=== PATIENT | female | born 1965 | race Caucasian/White ===

== ENCOUNTER 2018-02-23 22:45 | Observation (INO) | payer MEDICAID, OTHER ==
--- NOTE | 2018-02-23 22:52 | EDM.PDOC ---
ED HPI GENERAL MEDICAL PROBLEM - General Chief Complaint: Respiratory Problem Stated Complaint: shortness of breath Time Seen by Provider: 02/23/18 22:48 Source of Information: Reports: Patient, Family, Old Records, RN, RN Notes Reviewed History Limitations: Reports: No Limitations - History of Present Illness INITIAL COMMENTS - FREE TEXT/NARRATIVE: Mariluz Quinteros is a 52 year oldfemale who presents to the ED complains of fatigue and SOB that started gradually starting last /Wednesday. She does notfeel restored after sleeping and gets an average of 3-4 hours of sleep per night. She doessnore and daytime sleepiness doesoccur. She does notfeel sad, depressed, or lack hope for the future. She does not feel anxious. She doesfeel muscle fatigue and weakness. Physical exercise and activity exacerbates the fatigue. Patient has a history of Vit B12 deficiency s/p gastric bypass. She also has DHRUV. She states she is supposed to have a Vit B12 injection one a month. Her last injection was 12/20/2017. Patient was given a VitB12 injection on 2017 in clinic. She states she feels very winded, hard to catch her breath, and can not take in a deep breath. No recent infections. Patient states she feels these symptoms when her iron or Hgb is low. She has been taking her vitamins daily. She states she takes many rest periods throughout the day. She feels SOB most of the time since last week. No cough. No dizziness. No chest pain. Patient is also concerned about wound drainage. Patient underwent Achilles tendon repair on 01/24/2018. She states things have been going well since surgery. She noticed yesterday an open area along the incision line. She denies any odor to the wound. She states the drainage has bene purulent with a a small/ scant amount. She complains of increasing pain to the back on her right lower leg, just above the heal. No focal neurological deficits. Patient was seen by me in clinic two days ago and had multiple lab work completed. Her hematology and chemistries were normal. Would culture of right lower achilles showed Staph. Patient is currently taking SQ Lovenox injections. She states she has two injections left. Onset: Gradual Onset Date: 02/17/18 - Related Data Allergies Allergy/AdvReac Type Severity Reaction Status Date / Time No Known Allergies Allergy Verified 02/23/18 22:46 Home Meds: Home Meds Acetaminophen [Non-Aspirin Pain Relief] 1 - 2 tab PO Q4HR PRN 02/05/14 [History] B-Complex Vitamin 1 tab PO DAILY 02/05/14 [History] Bariatric Advantage Iron 60 mg pe CHEW DAILY 02/05/14 [History] Calcium Carbonate/Vitamin D3 [Calcium 500 + Vit D 400] 1 each PO DAILY 02/05/14 [History] Cholecalciferol (Vitamin D3) [Vitamin D] 5,000 unit PO TID 02/05/14 [History] Escitalopram [Lexapro] 20 mg PO DAILY 02/05/14 [History] Folic Acid 1 mg PO DAILY 02/05/14 [History] Vitamin A 7,500 unit PO DAILY 02/05/14 [History] Cyclobenzaprine HCl 1 tab PO ASDIRECTED PRN 12/18/16 [History] Past Medical History Other Musculoskeletal History: calf strain Psychiatric History: Reports: Depression - Past Surgical History GI Surgical History: Reports: Bariatric Procedure Social & Family History - Tobacco Use Smoking Status *Q: Never Smoker ED ROS GENERAL - Review of Systems Review Of Systems: See Below Constitutional: Reports: Weakness, Fatigue. Denies: Fever, Chills HEENT: Reports: No Symptoms Respiratory: Reports: Shortness of Breath (feels very congested). Denies: Cough , Sputum Cardiovascular: Denies: Chest Pain, Edema, Palpitations GI/Abdominal: Denies: Abdominal Pain, Nausea, Vomiting Skin: Reports: Wound (right achilles incision) Neurological: Reports: Dizziness. Denies: Headache, Numbness, Paresthesia, Tingling ED EXAM, GENERAL - Physical Exam Exam: See Below Exam Limited By: No Limitations General Appearance: Alert, No Apparent Distress Respiratory/Chest: No Respiratory Distress, Lungs Clear, Decreased Breath Sounds , Other (Patient is speaking in full sentences; does not appear SOB; patient laughing during exam) Cardiovascular: Normal Peripheral Pulses, Regular Rate, Rhythm Peripheral Pulses: 2+: Radial (L), Radial (R) GI/Abdominal: Soft, Non-Tender, Abnormal Bowel Sounds (Hypoactive) Neurological: Alert, Oriented Skin Exam: Warm, Dry, Normal Color, Wound/Incision (right lower Achilles; top of wound open, no drainage; slow to heal; steri-stripe intact over rest of incision; moderate erythema and swelling of incision; very tender to touch; incision measures 6.5cm) EKG INTERPRETATION EKG Date: 02/23/18 Time: 23:35 Rhythm: NSR Rate (Beats/Min): 72 [place]: Normal P-Wave: Present QRS: Normal ST-T: Normal QT: Normal HI/PQ Interval: 0.15 Comparison: NA - No Prior EKG EKG Interpretation Comments: 1. Sinus Rhythm 2. Minimal voltage criteria for LVH, consider normal variant 3. Possible anterior NM of indeterminate age 4. Abnormal ECG Course - Vital Signs Last Recorded V/S: Last Vital Signs Temp 37.0 C 02/23/18 22:48 Pulse 86 02/23/18 22:48 Resp 20 02/23/18 22:48 BP 142/77 H 02/23/18 22:48 Pulse Ox 100 02/23/18 22:48 - Orders/Labs/Meds Orders: Active Orders 24 hr Category Date Time Status Admission Status [Patient Status] [ADT] Routine ADT 02/24/18 00:36 Active EKG 12 Lead [EKG Documentation Completion] [RC] STAT Care 02/23/18 22:57 Active Chest PE [Ang Chest] [CT] Stat Exams 02/23/18 23:59 Ordered CULTURE BLOOD [BC] Stat Lab 02/23/18 23:19 Received CULTURE BLOOD [BC] Stat Lab 02/23/18 23:25 Received URINALYSIS W/MICROSCOPIC [UA W/MICROSCOPIC] [URIN] Stat Lab 02/23/18 23:55 Ordered Sodium Chloride 0.9% [Saline Flush] Med 02/23/18 22:54 Active 10 ml FLUSH ASDIRECTED PRN Blood Culture x2 Reflex Set [OM.PC] Stat Oth 02/23/18 22:54 Ordered Peripheral IV Insertion Adult [OM.PC] Routine Oth 02/23/18 22:54 Ordered Medication Orders Sodium Chloride (Saline Flush) 10 ml FLUSH ASDIRECTED PRN PRN Reason: Keep Vein Open Labs: Laboratory Tests 02/23/18 02/23/18 02/23/18 Range/Units 23:19 23:19 23:19 WBC 7.0 (4.0-10.0) x10^3/uL RBC 4.66 (4.00-5.50) x10^6/uL Hgb 13.1 (12.0-16.0) g/dL Hct 39.5 (33.0-47.0) % MCV 84.8 (78.0-93.0) fL MCH 28.1 (26.0-32.0) pg MCHC 33.2 (32.0-36.0) g/dL RDW Coeff of Saad 13.5 (10.0-15.0) % Plt Count 291 (130-400) x10^3/uL Neut % (Auto) 55.5 (50.0-80.0) % Lymph % (Auto) 31.8 (25.0-50.0) % [place] % (Auto) 9.1 (2.0-11.0) % Eos % (Auto) 3.2 (0.0-4.0) % Baso % (Auto) 0.4 (0.2-1.2) % PT (9.8-11.8) SEC INR (2.0-3.5) D-Dimer, Quantitative (<=0.58) mg/LFEU Sodium 141 (136-145) mmol/L Potassium 4.6 (3.5-5.1) mmol/L Chloride 106 (98-107) mmol/L Carbon Dioxide 28 (21-32) mmol/L Anion Gap 11.6 (10-20) mmol/L BUN 15 (7-18) mg/dL Creatinine 0.8 (0.55-1.02) mg/dL Est Cr Clr Drug Dosing TNP Estimated GFR (MDRD) > 60 Glucose 104 (74-106) mg/dL Lactic Acid 2.0 (0.4-2.0) mmol/L Calcium 8.8 (8.5-10.1) mg/dL Corrected Calcium 9.04 (8.5-10.1) mg/dL Total Bilirubin 0.2 (0.2-1.0) mg/dL AST 43 H (15-37) U/L ALT 88 H (14-59) U/L Alkaline Phosphatase 101 (46-116) U/L Creatine Kinase 57 (26-192) U/L Troponin I < 0.017 (<=0.056) ng/mL C-Reactive Protein < 0.2 (<=0.9) mg/dL NT-Pro-B Natriuret Pep (<=125) pg/mL Total Protein 7.5 (6.4-8.2) g/dL Albumin 3.7 (3.4-5.0) g/dL Globulin 3.8 Albumin/Globulin Ratio 0.97 Urine Color (YELLOW) Urine Appearance (CLEAR) Urine pH (5.0-8.0) Ur Specific [place] Urine Protein (NEGATIVE) mg/dL Urine Glucose (UA) (NEGATIVE) mg/dL Urine Ketones (NEGATIVE) mg/dL Urine Occult Blood (NEGATIVE) Urine Nitrite (NEGATIVE) Urine Bilirubin (NEGATIVE) Urine Urobilinogen (0.2) EU/dL Ur Leukocyte Esterase (NEGATIVE) Urine RBC (NOT SEEN) /HPF Urine WBC (NOT SEEN) /HPF Ur Squamous Epith Cells (NEGATIVE) /HPF Urine Bacteria (NEGATIVE) /HPF Urine Mucus (NEGATIVE) /LPF 02/23/18 02/23/18 02/23/18 Range/Units 23:19 23:19 23:55 WBC (4.0-10.0) x10^3/uL RBC (4.00-5.50) x10^6/uL Hgb (12.0-16.0) g/dL Hct (33.0-47.0) % MCV (78.0-93.0) fL MCH (26.0-32.0) pg MCHC (32.0-36.0) g/dL RDW Coeff of Saad (10.0-15.0) % Plt Count (130-400) x10^3/uL Neut % (Auto) (50.0-80.0) % Lymph % (Auto) (25.0-50.0) % [place] % (Auto) (2.0-11.0) % Eos % (Auto) (0.0-4.0) % Baso % (Auto) (0.2-1.2) % PT 9.2 L (9.8-11.8) SEC INR 0.9 L (2.0-3.5) D-Dimer, Quantitative 1.61 H (<=0.58) mg/LFEU Sodium (136-145) mmol/L Potassium (3.5-5.1) mmol/L Chloride (98-107) mmol/L Carbon Dioxide (21-32) mmol/L Anion Gap (10-20) mmol/L BUN (7-18) mg/dL Creatinine (0.55-1.02) mg/dL Est Cr Clr Drug Dosing Estimated GFR (MDRD) Glucose (74-106) mg/dL Lactic Acid (0.4-2.0) mmol/L Calcium (8.5-10.1) mg/dL Corrected Calcium (8.5-10.1) mg/dL Total Bilirubin (0.2-1.0) mg/dL AST (15-37) U/L ALT (14-59) U/L Alkaline Phosphatase (46-116) U/L Creatine Kinase (26-192) U/L Troponin I (<=0.056) ng/mL C-Reactive Protein (<=0.9) mg/dL NT-Pro-B Natriuret Pep 108 (<=125) pg/mL Total Protein (6.4-8.2) g/dL Albumin (3.4-5.0) g/dL Globulin Albumin/Globulin Ratio Urine Color Light yellow (YELLOW) Urine Appearance Slightly cloudy H (CLEAR) Urine pH 5.5 (5.0-8.0) Ur Specific [place] <=1.005 Urine Protein Negative (NEGATIVE) mg/dL Urine Glucose (UA) Negative (NEGATIVE) mg/dL Urine Ketones Negative (NEGATIVE) mg/dL Urine Occult Blood Negative (NEGATIVE) Urine Nitrite Negative (NEGATIVE) Urine Bilirubin Negative (NEGATIVE) Urine Urobilinogen 0.2 (0.2) EU/dL Ur Leukocyte Esterase Negative (NEGATIVE) Urine RBC Not seen (NOT SEEN) /HPF Urine WBC Not seen (NOT SEEN) /HPF Ur Squamous Epith Cells Many H (NEGATIVE) /HPF Urine Bacteria Not seen (NEGATIVE) /HPF Urine Mucus Not seen (NEGATIVE) /LPF Meds: Medications Generic Name Dose Route Start Last Admin Trade Name Freq PRN Reason Stop Dose Admin Sodium Chloride 10 ml 02/23/18 22:54 Saline Flush FLUSH ASDIRECTED PRN Keep Vein Open Departure - Departure Time of Disposition: 00:37 Disposition: Refer to Observation Condition: Fair Clinical Impression: Wound dehiscence, Shortness of breath, NASH (dyspnea on exertion) Superficial incisional infection of surgical site Qualifiers: Encounter type: initial encounter Qualified Code(s): T81.4XXA - Infection following a procedure, initial encounter - Discharge Information - Problem List & Annotations (1) Superficial incisional infection of surgical site SNOMED Code(s): 541697134 Code(s): T81.4XXA - INFECTION FOLLOWING A PROCEDURE, INITIAL ENCOUNTER Status: Acute Priority: Medium Current Visit: Yes Qualifiers: Encounter type: initial encounter Qualified Code(s): T81.4XXA - Infection following a procedure, initial encounter (2) Wound dehiscence SNOMED Code(s): 447392994 Code(s): T81.30XA - DISRUPTION OF WOUND, UNSPECIFIED, INITIAL ENCOUNTER Status: Acute Priority: Medium Current Visit: Yes (3) Shortness of breath SNOMED Code(s): 566835095 Code(s): R06.02 - SHORTNESS OF BREATH Status: Acute Priority: Medium Current Visit: Yes Onset Date: ~02/17/18 (4) NASH (dyspnea on exertion) SNOMED Code(s): 34416656 Code(s): R06.09 - OTHER FORMS OF DYSPNEA Status: Acute Priority: Medium Current Visit: Yes (5) Achilles rupture, right SNOMED Code(s): 77137069784924124 Code(s): S86.011A - STRAIN OF RIGHT ACHILLES TENDON, INITIAL ENCOUNTER Status: Acute Priority: Medium Current Visit: No Qualifiers: Encounter type: initial encounter Qualified Code(s): S86.011A - Strain of right Achilles tendon, initial encounter - Problem List Review Problem List Initiated/Reviewed/Updated: Yes - My Orders Last 24 Hours: My Active Orders 02/23/18 22:54 Sodium Chloride 0.9% [Saline Flush] 10 ml FLUSH ASDIRECTED PRN Blood Culture x2 Reflex Set [OM.PC] Stat Peripheral IV Insertion Adult [OM.PC] Routine 02/23/18 22:57 EKG 12 Lead [EKG Documentation Completion] [RC] STAT 02/23/18 23:19 CULTURE BLOOD [BC] Stat 02/23/18 23:25 CULTURE BLOOD [BC] Stat 02/23/18 23:55 URINALYSIS W/MICROSCOPIC [UA W/MICROSCOPIC] [URIN] Stat 02/23/18 23:59 Chest PE [Ang Chest] [CT] Stat 02/24/18 00:36 Admission Status [Patient Status] [ADT] Routine - Assessment/Plan Admission H&P: Please use this note as an admission H&P Last 24 Hours: My Active Orders 02/23/18 22:54 Sodium Chloride 0.9% [Saline Flush] 10 ml FLUSH ASDIRECTED PRN Blood Culture x2 Reflex Set [OM.PC] Stat Peripheral IV Insertion Adult [OM.PC] Routine 02/23/18 22:57 EKG 12 Lead [EKG Documentation Completion] [RC] STAT 02/23/18 23:19 CULTURE BLOOD [BC] Stat 02/23/18 23:25 CULTURE BLOOD [BC] Stat 02/23/18 23:55 URINALYSIS W/MICROSCOPIC [UA W/MICROSCOPIC] [URIN] Stat 02/23/18 23:59 Chest PE [Ang Chest] [CT] Stat 02/24/18 00:36 Admission Status [Patient Status] [ADT] Routine Assessment:: Incisional wound infection Wound dehiscence Shortness of breath NASH Plan: Given the patient's presenting symptoms and wound assessment, will admit observation for IV antibiotics and further workup and assessment of pulmonary status. Patient agrees with POC and wishes to proceed.
[2018-02-23] MEDS ORDERED: Sodium Chloride 0.9% 10 ML Syringe FLUSH PRN (22:54)
[2018-02-23 23:56] LABS: CHLORIDE,CL 106 mmol/L (98-107); SODIUM,NA 141 mmol/L (136-145)
[2018-02-24] MEDS ORDERED: Iopamidol 612 MG/ML 100 ML Bottle IVPUSH ONE (01:03)
[2018-02-24] MEDS ORDERED: Zolpidem 5 MG Tab PO PRN (01:07)
[2018-02-24] MEDS ORDERED: Ondansetron 4 MG Tab.DIS PO PRN (01:07)
[2018-02-24] MEDS ORDERED: Morphine 2 MG/ML Syringe IVPUSH PRN (01:10)
[2018-02-24] MEDS ORDERED: Cyclobenzaprine 10 MG Tab PO PRN ×2 (01:14→01:28)
[2018-02-24] MEDS ORDERED: Lactated Ringers 1,000 ML IV SCH (01:15)
[2018-02-24] MEDS ORDERED: Acetaminophen 325 MG Tab PO PRN (01:22)
[2018-02-24] MEDS ORDERED: SUMAtriptan 50 MG Tab PO PRN (01:24)
[2018-02-24] MEDS: Acetaminophen/HYDROcodone 325-5 MG Tab PO PRN ×2 (01:45→08:17)
--- NOTE | 2018-02-24 01:50 | PCM.HP ---
H&P History of Present Illness - General Date of Service: 02/24/18 Admit Problem/Dx: Admission Diagnosis/Problem Admission Diagnosis/Problem Wound infection following procedure Wound dehiscence SOB NASH Source of Information: Patient, Family, Old Records, RN, RN Notes Reviewed History Limitations: Reports: No Limitations - History of Present Illness Initial Comments - Free Text/Narative: Patient presented to the emergency room at [facility] earlier this evening complaining of worsening shortness of breath with dyspnea on exertion. The patient states her symptoms began last week Wednesday or Wednesday. The patient states her symptoms have progressively gotten worse since that time. The patient was seen by me in clinic on Wednesday, February 21, 2018 for the same complaint. The patient had blood work completed in an EKG which did not show any etiology for her symptoms. Therefore, the patient was sent home. The patient presented to the emergency room tonight stating that her symptoms were worse. The patient underwent a Achilles tendon repair on January 24, 2018. The patient had been seen in follow-up by the surgeon and it appeared her incision have been healing well. When the patient was seen by me in the clinic last Wednesday the patient had. The drainage from the superior end of the incision. The drainage was cultured which showed a Staphylococcus infection. The patient also had wound dehiscence on the superior and. The Steri-Strips were intact. The patient states that the open area of the wound has gotten a little worse and has become very tender and somewhat warm. During the patient's emergency room course, the patient had a CT scan of the chest to rule out PE due to elevated d-dimer and her shortness of breath with NASH. The patient's blood work was normal. Blood cultures are pending. Right Feet Pain Score (Numeric/FACES): 6 - Related Data Allergies/Adverse Reactions: Allergies Allergy/AdvReac Type Severity Reaction Status Date / Time No Known Allergies Allergy Verified 02/23/18 22:46 Home Medications: Home Meds Acetaminophen [Non-Aspirin Pain Relief] 1 - 2 tab PO Q4HR PRN 02/05/14 [History] B-Complex Vitamin 1 tab PO DAILY 02/05/14 [History] Bariatric Advantage Iron 60 mg pe CHEW DAILY 02/05/14 [History] Calcium Carbonate/Vitamin D3 [Calcium 500 + Vit D 400] 1 each PO DAILY 02/05/14 [History] Cholecalciferol (Vitamin D3) [Vitamin D] 5,000 unit PO TID 02/05/14 [History] Escitalopram [Lexapro] 20 mg PO DAILY 02/05/14 [History] Folic Acid 1 mg PO DAILY 02/05/14 [History] Vitamin A 7,500 unit PO DAILY 02/05/14 [History] Cyclobenzaprine HCl 1 tab PO ASDIRECTED PRN 12/18/16 [History] Past Medical History Other Musculoskeletal History: calf strain Psychiatric History: Reports: Depression - Infectious Disease History Infectious Disease History: Reports: Chicken Pox - Past Surgical History GI Surgical History: Reports: Bariatric Procedure Social & Family History - Family History Family Medical History: Noncontributory - Tobacco Use Smoking Status *Q: Never Smoker Second Hand Smoke Exposure: No - Caffeine Use Caffeine Use: Reports: Coffee, Soda - Recreational Drug Use Recreational Drug Use: No H&P Review of Systems - Review of Systems: Review Of Systems: See Below General: Reports: Weakness, Fatigue. Denies: Fever, Chills Pulmonary: Reports: Shortness of Breath. Denies: Cough, Sputum Cardiovascular: Reports: Dyspnea on Exertion. Denies: Chest Pain, Palpitations Gastrointestinal: Denies: Abdominal Pain, Nausea, Vomiting Musculoskeletal: Reports: Foot Pain (Right achilles area) Skin: Reports: Wound (right achilles) Neurological: Reports: No Symptoms. Denies: Numbness, Paresthesia, Tingling Exam - Exam Exam: See Below - Vital Signs Vital Signs: Last Vital Signs Temp 36.9 C 02/24/18 01:07 Pulse 89 02/24/18 01:07 Resp 20 02/24/18 01:07 BP 131/90 02/24/18 01:07 Pulse Ox 100 02/24/18 01:07 Weight: 128.548 kg - Exam Quality Assessment: DVT Prophylaxis, Skin Breakdown General: Alert, Oriented, Cooperative Lungs: Clear to Auscultation, Normal Respiratory Effort, Decreased Breath Sounds Cardiovascular: Regular Rate, Regular Rhythm GI/Abdominal Exam: Soft, Non-Tender, Abnormal Bowel Sounds (Hypoactive) Extremities: Limited Range of Motion (right foot due to recent surgery and pain) Peripheral Pulses: 2+: Posterior Tibial (L), Posterior Tibial (R), Dorsalis Pedis (L), Dorsalis Pedis (R) Skin: Warm, Dry, Incision (6.5cm vertical incision, posterior heel/right achilles; wound open superior end; steri-stripts intact; scant purulent drainage ; very tender to palpation) Neuro Extensive - Mental Status: Alert, Oriented x3 - Patient Data Lab Results Last 24 hrs: Laboratory Results - last 24 hr 02/23/18 02/23/18 02/23/18 Range/Units 23:19 23:19 23:19 WBC 7.0 (4.0-10.0) x10^3/uL RBC 4.66 (4.00-5.50) x10^6/uL Hgb 13.1 (12.0-16.0) g/dL Hct 39.5 (33.0-47.0) % MCV 84.8 (78.0-93.0) fL MCH 28.1 (26.0-32.0) pg MCHC 33.2 (32.0-36.0) g/dL RDW Coeff of Saad 13.5 (10.0-15.0) % Plt Count 291 (130-400) x10^3/uL Neut % (Auto) 55.5 (50.0-80.0) % Lymph % (Auto) 31.8 (25.0-50.0) % Divide % (Auto) 9.1 (2.0-11.0) % Eos % (Auto) 3.2 (0.0-4.0) % Baso % (Auto) 0.4 (0.2-1.2) % PT (9.8-11.8) SEC INR (2.0-3.5) D-Dimer, Quantitative (<=0.58) mg/LFEU Sodium 141 (136-145) mmol/L Potassium 4.6 (3.5-5.1) mmol/L Chloride 106 (98-107) mmol/L Carbon Dioxide 28 (21-32) mmol/L Anion Gap 11.6 (10-20) mmol/L BUN 15 (7-18) mg/dL Creatinine 0.8 (0.55-1.02) mg/dL Est Cr Clr Drug Dosing TNP Estimated GFR (MDRD) > 60 Glucose 104 (74-106) mg/dL Lactic Acid 2.0 (0.4-2.0) mmol/L Calcium 8.8 (8.5-10.1) mg/dL Corrected Calcium 9.04 (8.5-10.1) mg/dL Total Bilirubin 0.2 (0.2-1.0) mg/dL AST 43 H (15-37) U/L ALT 88 H (14-59) U/L Alkaline Phosphatase 101 (46-116) U/L Creatine Kinase 57 (26-192) U/L Troponin I < 0.017 (<=0.056) ng/mL C-Reactive Protein < 0.2 (<=0.9) mg/dL NT-Pro-B Natriuret Pep (<=125) pg/mL Total Protein 7.5 (6.4-8.2) g/dL Albumin 3.7 (3.4-5.0) g/dL Globulin 3.8 Albumin/Globulin Ratio 0.97 Urine Color (YELLOW) Urine Appearance (CLEAR) Urine pH (5.0-8.0) Ur Specific [place] Urine Protein (NEGATIVE) mg/dL Urine Glucose (UA) (NEGATIVE) mg/dL Urine Ketones (NEGATIVE) mg/dL Urine Occult Blood (NEGATIVE) Urine Nitrite (NEGATIVE) Urine Bilirubin (NEGATIVE) Urine Urobilinogen (0.2) EU/dL Ur Leukocyte Esterase (NEGATIVE) Urine RBC (NOT SEEN) /HPF Urine WBC (NOT SEEN) /HPF Ur Squamous Epith Cells (NEGATIVE) /HPF Urine Bacteria (NEGATIVE) /HPF Urine Mucus (NEGATIVE) /LPF 02/23/18 02/23/18 02/23/18 Range/Units 23:19 23:19 23:55 WBC (4.0-10.0) x10^3/uL RBC (4.00-5.50) x10^6/uL Hgb (12.0-16.0) g/dL Hct (33.0-47.0) % MCV (78.0-93.0) fL MCH (26.0-32.0) pg MCHC (32.0-36.0) g/dL RDW Coeff of Saad (10.0-15.0) % Plt Count (130-400) x10^3/uL Neut % (Auto) (50.0-80.0) % Lymph % (Auto) (25.0-50.0) % Divide % (Auto) (2.0-11.0) % Eos % (Auto) (0.0-4.0) % Baso % (Auto) (0.2-1.2) % PT 9.2 L (9.8-11.8) SEC INR 0.9 L (2.0-3.5) D-Dimer, Quantitative 1.61 H (<=0.58) mg/LFEU Sodium (136-145) mmol/L Potassium (3.5-5.1) mmol/L Chloride (98-107) mmol/L Carbon Dioxide (21-32) mmol/L Anion Gap (10-20) mmol/L BUN (7-18) mg/dL Creatinine (0.55-1.02) mg/dL Est Cr Clr Drug Dosing Estimated GFR (MDRD) Glucose (74-106) mg/dL Lactic Acid (0.4-2.0) mmol/L Calcium (8.5-10.1) mg/dL Corrected Calcium (8.5-10.1) mg/dL Total Bilirubin (0.2-1.0) mg/dL AST (15-37) U/L ALT (14-59) U/L Alkaline Phosphatase (46-116) U/L Creatine Kinase (26-192) U/L Troponin I (<=0.056) ng/mL C-Reactive Protein (<=0.9) mg/dL NT-Pro-B Natriuret Pep 108 (<=125) pg/mL Total Protein (6.4-8.2) g/dL Albumin (3.4-5.0) g/dL Globulin Albumin/Globulin Ratio Urine Color Light yellow (YELLOW) Urine Appearance Slightly cloudy H (CLEAR) Urine pH 5.5 (5.0-8.0) Ur Specific [place] <=1.005 Urine Protein Negative (NEGATIVE) mg/dL Urine Glucose (UA) Negative (NEGATIVE) mg/dL Urine Ketones Negative (NEGATIVE) mg/dL Urine Occult Blood Negative (NEGATIVE) Urine Nitrite Negative (NEGATIVE) Urine Bilirubin Negative (NEGATIVE) Urine Urobilinogen 0.2 (0.2) EU/dL Ur Leukocyte Esterase Negative (NEGATIVE) Urine RBC Not seen (NOT SEEN) /HPF Urine WBC Not seen (NOT SEEN) /HPF Ur Squamous Epith Cells Many H (NEGATIVE) /HPF Urine Bacteria Not seen (NEGATIVE) /HPF Urine Mucus Not seen (NEGATIVE) /LPF Result Diagrams: 02/23/18 23:19 02/23/18 23:19 *Q Meaningful Use (ADM) - VTE *Q VTE Mechanical Contraindications *Q: At Risk for Falls - Problem List (1) Superficial incisional infection of surgical site SNOMED Code(s): 108781349 ICD Code: T81.4XXA - INFECTION FOLLOWING A PROCEDURE, INITIAL ENCOUNTER Status: Acute Priority: Medium Current Visit: Yes Qualifiers: Encounter type: initial encounter Qualified Code(s): T81.4XXA - Infection following a procedure, initial encounter (2) Wound dehiscence SNOMED Code(s): 064679094 ICD Code: T81.30XA - DISRUPTION OF WOUND, UNSPECIFIED, INITIAL ENCOUNTER Status: Acute Priority: Medium Current Visit: Yes (3) Shortness of breath SNOMED Code(s): 280399921 ICD Code: R06.02 - SHORTNESS OF BREATH Status: Acute Priority: Medium Current Visit: Yes Onset Date: ~02/17/18 (4) NASH (dyspnea on exertion) SNOMED Code(s): 97085415 ICD Code: R06.09 - OTHER FORMS OF DYSPNEA Status: Acute Priority: Medium Current Visit: Yes (5) Achilles rupture, right SNOMED Code(s): 41638200995797104 ICD Code: S86.011A - STRAIN OF RIGHT ACHILLES TENDON, INITIAL ENCOUNTER Status: Acute Priority: Medium Current Visit: No Qualifiers: Encounter type: initial encounter Qualified Code(s): S86.011A - Strain of right Achilles tendon, initial encounter Problem List Initiated/Reviewed/Updated: Yes Orders Last 24hrs: Active Orders 24 hr Category Date Time Status Patient Status [ADT] Routine ADT 02/24/18 01:07 Active EKG 12 Lead [EKG Documentation Completion] [RC] STAT Care 02/23/18 22:57 Active Height and Weight [RC] UPON Care 02/24/18 01:07 Active Intake and Output [RC] QSHIFT Care 02/24/18 01:08 Active May Shower [RC] ASDIRECTED Care 02/24/18 01:07 Active Oxygen Therapy [RC] PRN Care 02/24/18 01:07 Active RT PFT Methacholine Challenge [RC] Click to Edit Care 02/24/18 01:11 Active Up ad Lucita [RC] ASDIRECTED Care 02/24/18 01:07 Active VTE/DVT Education [RC] PER UNIT ROUTINE Care 02/24/18 01:07 Active Vital Signs [RC] 06,10,14,18,22,02 Care 02/24/18 01:07 Active Consult to Case Management [CONS] Routine Cons 02/24/18 01:07 Active PT Evaluation and Treatment [CONS] Routine Cons 02/24/18 01:07 Active Respiratory Care Assess and Treatment [CONS] Routine Cons 02/24/18 01:07 Active Heart Healthy Diet [DIET] Diet 02/24/18 Breakfast Active Chest PE [Ang Chest] [CT] Stat Exams 02/23/18 23:59 Taken BASIC METABOLIC PANEL,BMP [CHEM] Routine Lab 02/24/18 05:11 Ordered CBC WITH AUTO DIFF [HEME] Routine Lab 02/24/18 05:11 Ordered CULTURE BLOOD [BC] Stat Lab 02/23/18 23:19 Received CULTURE BLOOD [BC] Stat Lab 02/23/18 23:25 Received MAGNESIUM [CHEM] Routine Lab 02/24/18 05:11 Ordered URINALYSIS W/MICROSCOPIC [UA W/MICROSCOPIC] [URIN] Stat Lab 02/23/18 23:55 Ordered Acetaminophen [Tylenol] Med 02/24/18 01:22 Active 650 mg PO Q4H PRN Acetaminophen/HYDROcodone [[place] 325-5 MG] Med 02/24/18 01:07 Active 1 tab PO Q6H PRN Bariatric Advantage Iron Med 02/24/18 08:00 Pending 60 mg pe CHEW DAILY Calcium Carbonate/Vitamin D3 [Calcium Carbonate/Vitamin Med 02/24/18 08:00 Active D 1250 MG-200 Unit] 1 tab PO DAILY Cholecalciferol (Vitamin D3) [Vitamin D] Med 02/24/18 08:00 Pending 10,000 unit PO DAILY Citalopram [Celexa] Med 02/24/18 08:00 Active 40 mg PO DAILY Cyclobenzaprine [Flexeril] Med 02/24/18 01:28 Pending 10 mg PO TID PRN Enoxaparin [Lovenox] Med 02/24/18 08:00 Active 40 mg SUBCUT Q24H Folic Acid Med 02/24/18 08:00 Active 1 mg PO DAILY Lactated Ringers [Ringers, Lactated] 1,000 ml Med 02/24/18 01:15 Active IV ASDIRECTED Morphine Med 02/24/18 01:10 Active 1 mg IVPUSH Q4H PRN Ondansetron [Zofran ODT] Med 02/24/18 01:07 Active 4 mg PO Q6H PRN SUMAtriptan [Imitrex] Med 02/24/18 01:24 Ordered 50 mg PO Q2H PRN Sodium Chloride 0.9% [Saline Flush] Med 02/23/18 22:54 Active 10 ml FLUSH ASDIRECTED PRN Vitamin A [Vitamin A] Med 02/24/18 08:00 Ordered 7,500 unit PO DAILY Vitamin B Complex [Balanced B-50] Med 02/24/18 08:00 Active 1 each PO DAILY Zolpidem [Ambien] Med 02/24/18 01:07 Active 5 mg PO BEDTIME PRN Blood Culture x2 Reflex Set [OM.PC] Stat Oth 02/23/18 22:54 Ordered Peripheral IV Insertion Adult [OM.PC] Routine Oth 02/23/18 22:54 Ordered Resuscitation Status Routine Resus Stat 02/24/18 01:07 Ordered Medication Orders Acetaminophen (Tylenol) 650 mg PO Q4H PRN PRN Reason: Pain Hydrocodone Bitart/Acetaminophen ([place] 325-5 Mg) 1 tab PO Q6H PRN PRN Reason: Pain (moderate 4-6) Calcium Carbonate (Calcium Carbonate/Vitamin D 1250 Mg-200 Unit) 1 tab PO DAILY [facility] Citalopram Hydrobromide (Celexa) 40 mg PO DAILY [facility] Cyclobenzaprine HCl (Flexeril) 10 mg PO TID PRN PRN Reason: Muscle Spasm Enoxaparin Sodium (Lovenox) 40 mg SUBCUT Q24H MICHAEL Stop: 02/26/18 08:01 Folic Acid (Folic Acid) 1 mg PO DAILY [facility] Lactated Ringer's (Ringers, Lactated) 1,000 mls @ 100 mls/hr IV ASDIRECTED [facility] Morphine Sulfate (Morphine) 1 mg IVPUSH Q4H PRN PRN Reason: Pain Non-Formulary Medication (Bariatric Advantage Iron) 60 mg pe CHEW DAILY [facility] Non-Formulary Medication (Cholecalciferol (Vitamin D3) [Vitamin D]) 10,000 unit PO DAILY [facility] Non-Formulary Medication (Vitamin A [Vitamin A]) 7,500 unit PO DAILY [facility] Ondansetron HCl (Zofran Odt) 4 mg PO Q6H PRN PRN Reason: nausea, able to take PO Sodium Chloride (Saline Flush) 10 ml FLUSH ASDIRECTED PRN PRN Reason: Keep Vein Open Sumatriptan Succinate (Imitrex) 50 mg PO Q2H PRN PRN Reason: Headache Vitamin B Complex (Balanced B-50) 1 each PO DAILY [facility] Zolpidem Tartrate (Ambien) 5 mg PO BEDTIME PRN PRN Reason: Sleep Assessment/Plan Comment:: 52-year-old female patient with a past medical history of gastric bypass, morbid obesity, right Achilles tendon repair is admitted to the observation unit at [facility] for wound incision infection, wound dehiscence, shortness of breath, and dyspnea on exertion. The patient will be started on gentle IV fluid hydration and also for hydration status post contrast infusion. The patient will be started on Rocephin 1 g IV every 24 hours for wound infection. We will continue the patient's current medications from home without any changes. We will ask physical therapy to see this patient for ambulation status. We will also contact case management to review the patient's case for possible home care needs. The patient is a full code. DVT prophylaxis with Lovenox subcutaneous and also early ambulation as able. The patient CT scan of the chest was negative for a pulmonary embolism. No other acute pathology found on CT scan. We will have the patient undergo pulmonary function testing tomorrow for her shortness of breath. The patient's cardiac markers were normal. The patient's proBNP was also normal at 108. No clear etiology is found for the patient's shortness of breath and ANSH. The patient may need an echocardiogram as outpatient for further assessment. The patient's symptoms could be related to anxiety as a possibility. The patient does wish to be transferred to a high-level care should the need arise. I do not anticipate the patient being admitted longer than 48 hours.
[2018-02-24 07:04] LABS: CHLORIDE,CL 107 mmol/L (98-107); SODIUM,NA 144 mmol/L (136-145)
[2018-02-24] MEDS ORDERED: cefTRIAXone 1 GM Vial IVPUSH SCH (08:00)
[2018-02-24] MEDS ORDERED: [UNRECOGNIZED DRUG - OTHER] CHEW SCH (08:00)
[2018-02-24] MEDS ORDERED: Citalopram 20 MG Tab PO SCH (08:00)
[2018-02-24] MEDS ORDERED: Calcium Carbonate/Vitamin D3 1250 MG-200 Unit Tab PO SCH (08:00)
[2018-02-24] MEDS ORDERED: VITAMIN A PO SCH (08:00)
[2018-02-24] MEDS ORDERED: Folic Acid 1 MG Tab PO SCH (08:00)
[2018-02-24] MEDS ORDERED: Cholecalciferol (Vitamin D3) 1,000 Unit Tab PO SCH (08:00)
[2018-02-24] MEDS ORDERED: IRON CHEW SCH (08:00)
[2018-02-24] MEDS ORDERED: Vitamin B Complex Tab.ER PO SCH (08:00)
[2018-02-24] MEDS ORDERED: Enoxaparin 40 MG/0.4 ML Syringe SUBCUT SCH ×2 (08:00)
[2018-02-24] MEDS ORDERED: Non-Formulary Medication 1 Each (Escitalopram [Lexapro] 20 MG) PO SCH (08:00)
[2018-02-24] MEDS ORDERED: Albuterol 0.083% 2.5 MG/3 ML Neb Soln NEB ONE (11:11)
--- NOTE | 2018-02-24 12:49 | PCM.DCSUM1 ---
Discharge Summary - Hospital Course HPI Initial Comments: NOTE: Patient was seen and examined by me as an [facility] provider Patient presented to the emergency room at [facility] last evening complaining of worsening shortness of breath with dyspnea on exertion. The patient states her symptoms began last week Wednesday or Wednesday. The patient states her symptoms have progressively gotten worse since that time. The patient was seen by me in clinic on Wednesday, February 21, 2018 for the same complaint. The patient had blood work completed in an EKG which did not show any etiology for her symptoms. Therefore, the patient was sent home. The patient presented to the emergency room tonight stating that her symptoms were worse. The patient underwent a Achilles tendon repair on January 24, 2018. The patient had been seen in follow-up by the surgeon and it appeared her incision have been healing well. When the patient was seen by me in the clinic last Wednesday the patient had. The drainage from the superior end of the incision. The drainage was cultured which showed a Staphylococcus infection. The patient also had wound dehiscence on the superior and. The Steri-Strips were intact. The patient states that the open area of the wound has gotten a little worse and has become very tender and somewhat warm. During the patient's emergency room course, the patient had a CT scan of the chest to rule out PE due to elevated d-dimer and her shortness of breath with NASH. The patient's blood work was normal. Blood cultures are pending. - Discharge Data Discharge Date: 02/24/18 Discharge Disposition: Home, Self-Care 01 Condition: Good - Discharge Diagnosis/Problem(s) (1) Superficial incisional infection of surgical site SNOMED Code(s): 139817424 ICD Code: T81.4XXA - INFECTION FOLLOWING A PROCEDURE, INITIAL ENCOUNTER Status: Acute Priority: Medium Current Visit: Yes Qualifiers: Encounter type: initial encounter Qualified Code(s): T81.4XXA - Infection following a procedure, initial encounter (2) Wound dehiscence SNOMED Code(s): 692122551 ICD Code: T81.30XA - DISRUPTION OF WOUND, UNSPECIFIED, INITIAL ENCOUNTER Status: Acute Priority: Medium Current Visit: Yes (3) Shortness of breath SNOMED Code(s): 375044522 ICD Code: R06.02 - SHORTNESS OF BREATH Status: Acute Priority: Medium Current Visit: Yes Onset Date: ~02/17/18 (4) NASH (dyspnea on exertion) SNOMED Code(s): 24561385 ICD Code: R06.09 - OTHER FORMS OF DYSPNEA Status: Acute Priority: Medium Current Visit: Yes (5) Achilles rupture, right SNOMED Code(s): 88410843023996814 ICD Code: S86.011A - STRAIN OF RIGHT ACHILLES TENDON, INITIAL ENCOUNTER Status: Acute Priority: Medium Current Visit: No Qualifiers: Encounter type: initial encounter Qualified Code(s): S86.011A - Strain of right Achilles tendon, initial encounter (6) Exercise-induced asthma SNOMED Code(s): 00989687 ICD Code: J45.990 - EXERCISE INDUCED BRONCHOSPASM Status: Acute Priority : Medium Current Visit: Yes Onset Date: ~02/24/18 - Patient Summary/Data Operative Procedure(s) Performed: None Consults: Consultations 02/24/18 01:07 Consult to Case Management [CONS] Routine PT Evaluation and Treatment [CONS] Routine Respiratory Care Assess and Treatment [CONS] Routine Labs Pending at D/C: None Recommended Follow-up Testing/Procedures: None Planned Operative Procedure(s) after DC: None Hospital Course: Overall, patient remained stable during her observation stay. Patient did not have any issues with urination or BM's. Tolerated diet well. VSS. Afebrile. Patient had a PFT today which showed asthma. Patient states her SOB is better. No chest pain. No abdominal pain. No focal neurological deficits. - Patient Instructions Diet: Heart Healthy Diet Activity: Non Weight Bearing (Right leg), Rest and Relax Today Driving: Do Not Drive Showering/Bathing: May Shower Wound/Incision Care: Keep Operative Site/Wound Site Clean and Dry, Change Dressing Daily Notify Provider of: Fever, Increased Pain, Swelling and Redness, Drainage, Nausea and/or Vomiting - Discharge Plan Home Medications: Home Meds Acetaminophen [Non-Aspirin Pain Relief] 1 - 2 tab PO Q4HR PRN 02/05/14 [History] B-Complex Vitamin 1 tab PO DAILY 02/05/14 [History] Bariatric Advantage Iron 60 mg pe CHEW DAILY 02/05/14 [History] Calcium Carbonate/Vitamin D3 [Calcium 500 + Vit D 400] 1 each PO DAILY 02/05/14 [History] Cholecalciferol (Vitamin D3) [Vitamin D] 5,000 unit PO TID 02/05/14 [History] Escitalopram [Lexapro] 20 mg PO DAILY 02/05/14 [History] Folic Acid 1 mg PO DAILY 02/05/14 [History] Vitamin A 7,500 unit PO DAILY 02/05/14 [History] Cyclobenzaprine HCl 1 tab PO ASDIRECTED PRN 12/18/16 [History] Enoxaparin [Lovenox] 40 mg SUBCUT Q24H syringe 02/24/18 [Rx] SUMAtriptan [Imitrex] 50 mg PO Q2H PRN tablet 02/24/18 [Rx] Patient Handouts: Asthma, Adult, Wound Infection Referrals: Hilda Espinosa [employer] [Primary Care Provider] - - Discharge Summary/Plan Comment DC Time >30 min.: Yes Discharge Summary/Plan Comment: Patient will be discharge home today. Will start patient on Singular daily at bedtimes and Albuterol inhaler to see how she does on this for her new diagnosis of exercise induced asthma. Will start a ten day coarse of Clindamycin for incision infection. Continue all other medications the same. Patient will need a follow up with PCP in one week for a hospital recheck. Continue with same wound care as directed by Podiatry. NOTE: This patient was seen and examined by me as an [facility] provider - General Info Date of Service: 02/24/18 Admission Dx/Problem (Free Text: Admission Diagnosis/Problem Admission Diagnosis/Problem Wound infection following procedure Wound dehiscence SOB NASH Subjective Update: Patient offers no specific complaints. She states her breathing is much better after her PFT's this AM. No new concerns. Functional Status: Reports: Pain Controlled, Tolerating Diet, Urinating Numeric/FACES Score: 0 - Review of Systems General: Reports: Weakness, Fatigue. Denies: Fever Pulmonary: Denies: Shortness of Breath, Sputum Cardiovascular: Denies: Chest Pain, Palpitations Gastrointestinal: Denies: Abdominal Pain, Nausea, Vomiting Skin: Reports: Other (incision right achilles) Neurological: Denies: Dizziness, Headache - Patient Data Vitals - Most Recent: Last Vital Signs Temp 36.5 C 02/24/18 10:00 Pulse 74 02/24/18 10:00 Resp 20 02/24/18 10:00 BP 121/78 02/24/18 10:00 Pulse Ox 97 02/24/18 10:00 Weight - Most Recent: 128.548 kg I&O - Last 24 hours: Intake & Output 02/23/18 02/24/18 02/24/18 22:59 06:59 14:59 Intake Total 433 792 Balance 433 792 Lab Results - Last 24 hrs: Laboratory Results - last 24 hr 02/23/18 02/23/18 02/23/18 Range/Units 23:19 23:19 23:19 WBC 7.0 (4.0-10.0) x10^3/uL RBC 4.66 (4.00-5.50) x10^6/uL Hgb 13.1 (12.0-16.0) g/dL Hct 39.5 (33.0-47.0) % MCV 84.8 (78.0-93.0) fL MCH 28.1 (26.0-32.0) pg MCHC 33.2 (32.0-36.0) g/dL RDW Coeff of Saad 13.5 (10.0-15.0) % Plt Count 291 (130-400) x10^3/uL Neut % (Auto) 55.5 (50.0-80.0) % Lymph % (Auto) 31.8 (25.0-50.0) % Edwards % (Auto) 9.1 (2.0-11.0) % Eos % (Auto) 3.2 (0.0-4.0) % Baso % (Auto) 0.4 (0.2-1.2) % PT (9.8-11.8) SEC INR (2.0-3.5) D-Dimer, Quantitative (<=0.58) mg/LFEU Sodium 141 (136-145) mmol/L Potassium 4.6 (3.5-5.1) mmol/L Chloride 106 (98-107) mmol/L Carbon Dioxide 28 (21-32) mmol/L Anion Gap 11.6 (10-20) mmol/L BUN 15 (7-18) mg/dL Creatinine 0.8 (0.55-1.02) mg/dL Est Cr Clr Drug Dosing TNP Estimated GFR (MDRD) > 60 Glucose 104 (74-106) mg/dL Lactic Acid 2.0 (0.4-2.0) mmol/L Calcium 8.8 (8.5-10.1) mg/dL Corrected Calcium 9.04 (8.5-10.1) mg/dL Magnesium (1.8-2.4) mg/dL Total Bilirubin 0.2 (0.2-1.0) mg/dL AST 43 H (15-37) U/L ALT 88 H (14-59) U/L Alkaline Phosphatase 101 (46-116) U/L Creatine Kinase 57 (26-192) U/L Troponin I < 0.017 (<=0.056) ng/mL C-Reactive Protein < 0.2 (<=0.9) mg/dL NT-Pro-B Natriuret Pep (<=125) pg/mL Total Protein 7.5 (6.4-8.2) g/dL Albumin 3.7 (3.4-5.0) g/dL Globulin 3.8 Albumin/Globulin Ratio 0.97 Urine Color (YELLOW) Urine Appearance (CLEAR) Urine pH (5.0-8.0) Ur Specific Gilman Urine Protein (NEGATIVE) mg/dL Urine Glucose (UA) (NEGATIVE) mg/dL Urine Ketones (NEGATIVE) mg/dL Urine Occult Blood (NEGATIVE) Urine Nitrite (NEGATIVE) Urine Bilirubin (NEGATIVE) Urine Urobilinogen (0.2) EU/dL Ur Leukocyte Esterase (NEGATIVE) Urine RBC (NOT SEEN) /HPF Urine WBC (NOT SEEN) /HPF Ur Squamous Epith Cells (NEGATIVE) /HPF Urine Bacteria (NEGATIVE) /HPF Urine Mucus (NEGATIVE) /LPF 02/23/18 02/23/18 02/23/18 Range/Units 23:19 23:19 23:55 WBC (4.0-10.0) x10^3/uL RBC (4.00-5.50) x10^6/uL Hgb (12.0-16.0) g/dL Hct (33.0-47.0) % MCV (78.0-93.0) fL MCH (26.0-32.0) pg MCHC (32.0-36.0) g/dL RDW Coeff of Saad (10.0-15.0) % Plt Count (130-400) x10^3/uL Neut % (Auto) (50.0-80.0) % Lymph % (Auto) (25.0-50.0) % Edwards % (Auto) (2.0-11.0) % Eos % (Auto) (0.0-4.0) % Baso % (Auto) (0.2-1.2) % PT 9.2 L (9.8-11.8) SEC INR 0.9 L (2.0-3.5) D-Dimer, Quantitative 1.61 H (<=0.58) mg/LFEU Sodium (136-145) mmol/L Potassium (3.5-5.1) mmol/L Chloride (98-107) mmol/L Carbon Dioxide (21-32) mmol/L Anion Gap (10-20) mmol/L BUN (7-18) mg/dL Creatinine (0.55-1.02) mg/dL Est Cr Clr Drug Dosing Estimated GFR (MDRD) Glucose (74-106) mg/dL Lactic Acid (0.4-2.0) mmol/L Calcium (8.5-10.1) mg/dL Corrected Calcium (8.5-10.1) mg/dL Magnesium (1.8-2.4) mg/dL Total Bilirubin (0.2-1.0) mg/dL AST (15-37) U/L ALT (14-59) U/L Alkaline Phosphatase (46-116) U/L Creatine Kinase (26-192) U/L Troponin I (<=0.056) ng/mL C-Reactive Protein (<=0.9) mg/dL NT-Pro-B Natriuret Pep 108 (<=125) pg/mL Total Protein (6.4-8.2) g/dL Albumin (3.4-5.0) g/dL Globulin Albumin/Globulin Ratio Urine Color Light yellow (YELLOW) Urine Appearance Slightly cloudy H (CLEAR) Urine pH 5.5 (5.0-8.0) Ur Specific Gilman <=1.005 Urine Protein Negative (NEGATIVE) mg/dL Urine Glucose (UA) Negative (NEGATIVE) mg/dL Urine Ketones Negative (NEGATIVE) mg/dL Urine Occult Blood Negative (NEGATIVE) Urine Nitrite Negative (NEGATIVE) Urine Bilirubin Negative (NEGATIVE) Urine Urobilinogen 0.2 (0.2) EU/dL Ur Leukocyte Esterase Negative (NEGATIVE) Urine RBC Not seen (NOT SEEN) /HPF Urine WBC Not seen (NOT SEEN) /HPF Ur Squamous Epith Cells Many H (NEGATIVE) /HPF Urine Bacteria Not seen (NEGATIVE) /HPF Urine Mucus Not seen (NEGATIVE) /LPF 02/24/18 02/24/18 Range/Units 06:30 06:30 WBC 5.5 (4.0-10.0) x10^3/uL RBC 4.24 (4.00-5.50) x10^6/uL Hgb 12.1 (12.0-16.0) g/dL Hct 36.3 (33.0-47.0) % MCV 85.6 (78.0-93.0) fL MCH 28.5 (26.0-32.0) pg MCHC 33.3 (32.0-36.0) g/dL RDW Coeff of Saad 13.5 (10.0-15.0) % Plt Count 252 (130-400) x10^3/uL Neut % (Auto) 48.8 L (50.0-80.0) % Lymph % (Auto) 36.6 (25.0-50.0) % Edwards % (Auto) 10.1 (2.0-11.0) % Eos % (Auto) 3.8 (0.0-4.0) % Baso % (Auto) 0.7 (0.2-1.2) % PT (9.8-11.8) SEC INR (2.0-3.5) D-Dimer, Quantitative (<=0.58) mg/LFEU Sodium 144 (136-145) mmol/L Potassium 3.9 (3.5-5.1) mmol/L Chloride 107 (98-107) mmol/L Carbon Dioxide 28 (21-32) mmol/L Anion Gap 12.9 (10-20) mmol/L BUN 15 (7-18) mg/dL Creatinine 0.8 (0.55-1.02) mg/dL Est Cr Clr Drug Dosing 74.02 Estimated GFR (MDRD) > 60 Glucose 94 (74-106) mg/dL Lactic Acid (0.4-2.0) mmol/L Calcium 8.2 L (8.5-10.1) mg/dL Corrected Calcium (8.5-10.1) mg/dL Magnesium 1.9 (1.8-2.4) mg/dL Total Bilirubin (0.2-1.0) mg/dL AST (15-37) U/L ALT (14-59) U/L Alkaline Phosphatase (46-116) U/L Creatine Kinase (26-192) U/L Troponin I (<=0.056) ng/mL C-Reactive Protein (<=0.9) mg/dL NT-Pro-B Natriuret Pep (<=125) pg/mL Total Protein (6.4-8.2) g/dL Albumin (3.4-5.0) g/dL Globulin Albumin/Globulin Ratio Urine Color (YELLOW) Urine Appearance (CLEAR) Urine pH (5.0-8.0) Ur Specific Gilman Urine Protein (NEGATIVE) mg/dL Urine Glucose (UA) (NEGATIVE) mg/dL Urine Ketones (NEGATIVE) mg/dL Urine Occult Blood (NEGATIVE) Urine Nitrite (NEGATIVE) Urine Bilirubin (NEGATIVE) Urine Urobilinogen (0.2) EU/dL Ur Leukocyte Esterase (NEGATIVE) Urine RBC (NOT SEEN) /HPF Urine WBC (NOT SEEN) /HPF Ur Squamous Epith Cells (NEGATIVE) /HPF Urine Bacteria (NEGATIVE) /HPF Urine Mucus (NEGATIVE) /LPF Med Orders - Current: Current Medications Acetaminophen (Tylenol) 650 mg PO Q4H PRN PRN Reason: Pain Hydrocodone Bitart/Acetaminophen ([place] 325-5 Mg) 1 tab PO Q6H PRN PRN Reason: Pain (moderate 4-6) Last Admin: 02/24/18 08:17 Dose: 1 tab Calcium Carbonate (Calcium Carbonate/Vitamin D 1250 Mg-200 Unit) 1 tab PO DAILY [facility] Last Admin: 02/24/18 08:05 Dose: 1 tab Ceftriaxone Sodium (Rocephin) 1 gm IVPUSH DAILY [facility] Last Admin: 02/24/18 08:07 Dose: 1 gm Cholecalciferol (Vitamin D3) 10,000 units PO DAILY [facility] Last Admin: 02/24/18 08:03 Dose: 10,000 units Citalopram Hydrobromide (Celexa) 40 mg PO DAILY [facility] Last Admin: 02/24/18 08:02 Dose: 40 mg Cyclobenzaprine HCl (Flexeril) 10 mg PO TID PRN PRN Reason: Muscle Spasm Enoxaparin Sodium (Lovenox) 40 mg SUBCUT Q24H [facility] Stop: 02/25/18 08:01 Last Admin: 02/24/18 08:07 Dose: 40 mg Folic Acid (Folic Acid) 1 mg PO DAILY [facility] Last Admin: 02/24/18 08:06 Dose: 1 mg Lactated Ringer's (Ringers, Lactated) 1,000 mls @ 100 mls/hr IV ASDIRECTED [facility] Last Admin: 02/24/18 01:45 Dose: 100 mls/hr Morphine Sulfate (Morphine) 1 mg IVPUSH Q4H PRN PRN Reason: Pain Non-Formulary Medication (Bariatric Advantage Iron) 60 mg pe CHEW DAILY [facility] Non-Formulary Medication (Vitamin A [Vitamin A]) 7,500 unit PO DAILY [facility] Ondansetron HCl (Zofran Odt) 4 mg PO Q6H PRN PRN Reason: nausea, able to take PO Sodium Chloride (Saline Flush) 10 ml FLUSH ASDIRECTED PRN PRN Reason: Keep Vein Open Sumatriptan Succinate (Imitrex) 50 mg PO Q2H PRN PRN Reason: Headache Vitamin B Complex (Balanced B-50) 1 each PO DAILY [facility] Last Admin: 02/24/18 08:03 Dose: 1 each Zolpidem Tartrate (Ambien) 5 mg PO BEDTIME PRN PRN Reason: Sleep Last Admin: 02/24/18 01:45 Dose: 5 mg Discontinued Medications Albuterol (Proventil Neb Soln) 2.5 mg NEB ONETIME ONE Stop: 02/24/18 11:12 Last Admin: 02/24/18 11:18 Dose: 2.5 mg Cyclobenzaprine HCl (Flexeril) mg PO ASDIRECTED PRN PRN Reason: Muscle Spasm Enoxaparin Sodium (Lovenox) 40 mg SUBCUT Q24H [facility] Stop: 02/26/18 08:01 Iopamidol (Isovue-300 (61%)) 100 ml IVPUSH ONETIME ONE Stop: 02/24/18 01:04 Last Admin: 02/24/18 01:13 Dose: 100 ml Methacholine Chloride (Provocholine) 5 mg INH ONETIME ONE Stop: 02/24/18 11:09 Last Admin: 02/24/18 11:16 Dose: 5 mg Methacholine Chloride (Provocholine) 37.5 mg INH ONETIME ONE Stop: 02/24/18 11:09 Last Admin: 02/24/18 11:17 Dose: 37.5 mg - Exam Quality Assessment: Reports: Skin Breakdown General: Reports: Alert, Oriented, Cooperative, No Acute Distress Lungs: Reports: Clear to Auscultation, Normal Respiratory Effort, Decreased Breath Sounds Cardiovascular: Reports: Regular Rate, Regular Rhythm GI/Abdominal Exam: Normal Bowel Sounds, Soft, Non-Tender Skin: Reports: Warm, Dry, Other (open incision right achilles intact; no drainge ; still have marked erythema and swelling; steri-strips intact) Wound/Incisions: Reports: No Drainage, Erythema Improving Neurological: Reports: No New Focal Deficit *Q Meaningful Use (DIS) - VTE *Q VTE Mechanical Contraindications *Q: At Risk for Falls
[2018-02-24 16:47] VITALS: BP 122/63
== END 2018-02-24 17:00 | disposition home or self-care (01) ==
LOC: VM.ED 22:45 → VM.MS 02-24 00:36
PROVIDERS: ADMIT Nurse Practitioner Family; ATTEND Nurse Practitioner Family
DX: T81.4XXA Infection following a procedure, initial encounter (principal); T81.30XA Disruption of wound, unspecified, initial encounter; S86.011A Strain of right Achilles tendon, initial encounter; R06.02 Shortness of breath; R06.09 Other forms of dyspnea; J45.990 Exercise induced bronchospasm; F32.9 Major depressive disorder, single episode, unspecified; Z79.899 Other long term (current) drug therapy; Z98.84 Bariatric surgery status; X58.XXXA Exposure to other specified factors, initial encounter
CPT/HCPCS: 36415; 71275; 80048; 80053; 81001; 82550; 83605; 83735; 83880; 84484; 85025; 85379; 85610; 86140; 87040; 93005; 94070; 99285; A9270; J0696; J1650; J7120; J7620; J7674; Q9967; 96372; 96374; G0378

== ENCOUNTER 2020-09-13 10:39 | Emergency (ER) | payer BC, MEDICAID ==
[2020-09-13 10:49] VITALS: BP 144/80; PULSE 68
--- NOTE | 2020-09-13 11:20 | EDM.PDOC ---
ED HPI GENERAL MEDICAL PROBLEM - General Chief Complaint: Fever Stated Complaint: ER Time Seen by Provider: 09/13/20 10:45 Source of Information: Reports: Patient History Limitations: Reports: No Limitations - History of Present Illness INITIAL COMMENTS - FREE TEXT/NARRATIVE: Patient comes into the emergency department with complaints of shortness of breath, body aches, fever lasting approximately 24 hours. Patient was at the clinic and they suggested that the patient be seen in the emergency department for they did not have an x-ray capability. Patient presented for Further evaluation. Patient states that her shortness of breath, body aches, and fever started about 24 hours ago and has slowly progressed. Patient states that she is not short of breath at rest but is short of breath when ambulating. Patient has been taking Tylenol to help with the pain and discomfort of the body aches and states that that has been helping. Patient states that her fever has not b een as high today as it was yesterday. She states that her highest temperature was 100.4. Patient denies losing any taste or smell. 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 Patient currently denies any chest pain, shortness of breath at rest, dizziness, lightheadedness, changes in vision, fever, nausea, diaphoresis, vomiting, abdominal pain, genitourinary concerns, or peripheral edema. Onset: Gradual Location: Reports: Generalized Quality: Reports: Ache Severity: Moderate Improves with: Reports: Immobilization Worsens with: Reports: Movement Context: Reports: Other Associated Symptoms: Reports: Cough, Fever/Chills, Malaise, Shortness of Breath. Denies: Confusion, Chest Pain, cough w sputum, Diaphoresis, Headaches, Loss of Appetite, Syncope Treatments [employer]EM[employer]: Reports: Acetaminophen - Related Data Allergies Allergy/AdvReac Type Severity Reaction Status Date / Time No Known Allergies Allergy Verified 09/13/20 10:51 Home Meds: Home Meds Acetaminophen [Non-Aspirin Pain Relief] 1 - 2 tab PO Q4HR PRN 02/05/14 [History] B-Complex Vitamin 1 tab PO DAILY 02/05/14 [History] Bariatric Advantage Iron 60 mg pe CHEW DAILY 02/05/14 [History] Calcium Carbonate/Vitamin D3 [Calcium 500 + Vit D 400] 1 each PO DAILY 02/05/14 [History] Cholecalciferol (Vitamin D3) [Vitamin D] 5,000 unit PO TID 02/05/14 [History] Escitalopram [Lexapro] 20 mg PO DAILY 02/05/14 [History] Folic Acid 1 mg PO DAILY 02/05/14 [History] Vitamin A 7,500 unit PO DAILY 02/05/14 [History] Cyclobenzaprine HCl 1 tab PO ASDIRECTED PRN 12/18/16 [History] Albuterol Sulfate [Ventolin Hfa] 2 puff IH Q4H PRN #1 canister 02/24/18 [Rx] Clindamycin HCl 1 cap PO TID 10 Days #30 capsule 02/24/18 [Rx] Enoxaparin [Lovenox] 40 mg SUBCUT Q24H syringe 02/24/18 [Rx] Montelukast Sodium [Singulair] 1 tab PO BEDTIME 30 Days #30 tablet 02/24/18 [Rx] SUMAtriptan [Imitrex] 50 mg PO Q2H PRN tablet 02/24/18 [Rx] Past Medical History Other Musculoskeletal History: calf strain Psychiatric History: Reports: Depression - Infectious Disease History Infectious Disease History: Reports: Chicken Pox - Past Surgical History GI Surgical History: Reports: Bariatric Procedure Social & Family History - Family History Family Medical History: Noncontributory - Caffeine Use Caffeine Use: Reports: Coffee, Soda ED ROS GENERAL - Review of Systems Review Of Systems: Comprehensive ROS is negative, except as noted in HPI. Constitutional: Reports: Fever, Chills, Fatigue HEENT: Reports: No Symptoms Respiratory: Reports: Shortness of Breath, Cough Cardiovascular: Reports: No Symptoms Endocrine: Reports: No Symptoms GI/Abdominal: Reports: No Symptoms : Reports: No Symptoms Musculoskeletal: Reports: No Symptoms Skin: Reports: No Symptoms Neurological: Reports: No Symptoms Psychiatric: Reports: No Symptoms Hematologic/Lymphatic: Reports: No Symptoms Immunologic: Reports: No Symptoms ED EXAM, GENERAL - Physical Exam Exam: See Below Exam Limited By: No Limitations General Appearance: Alert, WD/WN, No Apparent Distress Eye Exam: Bilateral Eye: EOMI, PERRL Head: Atraumatic, Normocephalic Neck: Normal Inspection, Supple, Non-Tender, Full Range of Motion Respiratory/Chest: Lungs Clear, No Accessory Muscle Use, Chest Non-Tender, Decreased Breath Sounds Cardiovascular: Normal Peripheral Pulses, Regular Rate, Rhythm, No Edema GI/Abdominal: Normal Bowel Sounds, Soft, Non-Tender, No Abnormal Bruit (Female) Exam: Deferred Rectal (Female) Exam: Deferred Back Exam: Normal Inspection, Full Range of Motion Extremities: Normal Inspection, Normal Range of Motion, Non-Tender, No Pedal Edema, Normal Capillary Refill Neurological: Alert, Oriented, Normal Gait Psychiatric: Normal Affect, Normal Mood Skin Exam: Warm, Dry, Intact, Normal Color Course - Vital Signs Last Recorded V/S: Last Vital Signs Temp 36.6 C 09/13/20 10:40 Pulse 68 09/13/20 10:40 Resp 20 09/13/20 10:40 BP 144/80 H 09/13/20 10:40 Pulse Ox 97 09/13/20 10:40 - Orders/Labs/Meds Labs: Laboratory Tests 09/13/20 09/13/20 09/13/20 Range/Units 10:49 11:28 11:28 WBC 2.8 L (4.0-10.0) x10^3/uL RBC 4.26 (4.00-5.50) x10^6/uL Hgb 11.0 L (12.0-16.0) g/dL Hct 35.3 (33.0-47.0) % MCV 82.9 (78.0-93.0) fL MCH 25.8 L (26.0-32.0) pg MCHC 31.2 L (32.0-36.0) g/dL RDW Coeff of Saad 14.2 (10.0-15.0) % Plt Count 208 (130-400) x10^3/uL Neut % (Auto) 55.6 (50.0-80.0) % Lymph % (Auto) 29.2 (25.0-50.0) % Mcpherson % (Auto) 12.7 H (2.0-11.0) % Eos % (Auto) 2.1 (0.0-4.0) % Baso % (Auto) 0.4 (0.2-1.2) % Sodium 144 (136-145) mmol/L Potassium 3.6 (3.5-5.1) mmol/L Chloride 108 H (98-107) mmol/L Carbon Dioxide 29 (21-32) mmol/L Anion Gap 10.6 (10-20) mmol/L BUN 9 (7-18) mg/dL Creatinine 0.9 (0.55-1.02) mg/dL Est Cr Clr Drug Dosing TNP Estimated GFR (MDRD) > 60 Glucose 64 L (74-106) mg/dL Calcium 8.0 L (8.5-10.1) mg/dL Corrected Calcium 8.48 L (8.5-10.1) mg/dL Total Bilirubin 0.3 (0.2-1.0) mg/dL AST 16 (15-37) U/L ALT 21 (14-59) U/L Alkaline Phosphatase 106 (46-116) U/L Total Protein 6.3 L (6.4-8.2) g/dL Albumin 3.4 (3.4-5.0) g/dL Globulin 2.9 Albumin/Globulin Ratio 1.17 SARS CoV-2 RNA Rapid JOAN Positive H (NEGATIVE) Departure - Departure Time of Disposition: 12:30 Disposition: Home, Self-Care 01 Condition: Good Clinical Impression: COVID-19, SOB (shortness of breath), Generalized body aches - Discharge Information *PRESCRIPTION DRUG MONITORING PROGRAM REVIEWED*: Not Applicable *COPY OF PRESCRIPTION DRUG MONITORING REPORT IN PATIENT CYRUS: Not Applicable Instructions: COVID-19 Frequently Asked Questions, Prevent the Spread of COVID- 19 if You Are Sick - [facility] Forms: ED Department Discharge, ED Return to Work/School Form Additional Instructions: 1. rest 2. increase your water intake 3. Continue all at home medications 4. Need to quarantine for 10 days from today and make a list of all the people who you have been in close contact (under 6 feet of distance and either constitution party without a mask on) with 48 hours prior to starting symptoms yesterday and let them know they should self isolated 5. Be prepared to answer your phone when the [facility] Department calls regarding follow up questions and recommendations 5. Can take over the counter Tylenol for any pain or discomfort 6. Follow up with PCP if symptoms continue, return, or progress 7. Call with any questions or concerns Sepsis Event Note (ED) - Evaluation Sepsis Screening Result: No Definite Risk - Focused Exam Vital Signs: Vital Signs Temp Pulse Resp BP Pulse Ox 09/13/20 10:40 36.6 C 68 20 144/80 H 97 - Assessment/Plan Assessment:: 1. SOB 2. Body ache 3. Covid-19 positive Plan: 1. Labs completed in the ER. Results reviewed with the patient 2. covid-19 testing completed- positive results 3. X-ray completed in the ER for SOB 4. 6. Patient and nursing staff was updated regarding the plan of care 7. Education provided the patient regarding activity, diet, rest, [id number] medication modalities, and follow-up care was provided 8. Patient and family are agreeable to the above plan of care 9. All questions and concerns were addressed with the patient and family prior to discharge
[2020-09-13 11:56] LABS: ANION GAP 10.6 mmol/L (10-20); CHLORIDE,CL 108 mmol/L (98-107); SODIUM,NA 144 mmol/L (136-145)
--- NOTE | 2020-09-13 12:04 | CR ---
[id number] RAD/RAD Chest PA or AP 1V EXAM: RAD Chest PA or AP 1V INDICATION: COVID 19, SHORTNESS OF BREATH. COMPARISON: CT from 2018. DISCUSSION: Cardiomediastinal silhouette is normal in size and contour. Lungs are clear. No pleural effusion or pneumothorax. IMPRESSION: Negative examination of the chest. Thiago Chaves MD 09/13/20 [id number] Thank you for allowing us to participate in the care of your patient.
== END 2020-09-13 12:39 | disposition home or self-care (01) ==
LOC: VM.ED 10:39
DX: U07.1 COVID-19 (principal); F32.9 Major depressive disorder, single episode, unspecified; Z79.899 Other long term (current) drug therapy; Z79.01 Long term (current) use of anticoagulants
CPT/HCPCS: 36415; 71045; 80053; 85025; 99284; 99285-25; U0002

== ENCOUNTER 2021-11-06 16:44 | Emergency (ER) | payer OTHER, MEDICARE, MEDICAID ==
[2021-11-06 17:04] VITALS: BP 132/69; PULSE 50
--- NOTE | 2021-11-06 17:12 | EDM.PDOC ---
ED HPI GENERAL MEDICAL PROBLEM - General Chief Complaint: Neck Problem Stated Complaint: HARD TO LIFT ARMS Time Seen by Provider: 11/06/21 17:12 Source of Information: Reports: Patient History Limitations: Reports: No Limitations - History of Present Illness INITIAL COMMENTS - FREE TEXT/NARRATIVE: Patient comes emergency department today with complaints of a fall neck pain and overall fatigue. This patient does have a history of a C6-C7 fusion. Approximately 36 hours ago the patient was outside when she slipped and fell landing backwards primarily striking between her shoulder blades on the ground and struck her head. There was no loss of consciousness. She does have some chronic pain in her neck from her previous fusion but her pain is much worse. Her pain is more laterally based and centrally base. She feels some tightness along the shoulders. She has no paresthesias of her upper or lower extremities. No change in the functionality of her upper or lower extremities. She has had no headache visual acuity changes nausea vomiting or blurred vision. She has no other pain in her back. She has not tried anything for the pain prior to arrival. She is able to move her arms and legs appropriately. She has no other complaints. She does also complain of some tightness primarily along the rib cage bilaterally in the inferior aspect. She has had no midsternal chest pain. No shortness of breath or difficulty breathing. This is more mechanical in nature and gets worse with movement cough or deep breath. She has no shortness of breath. No fever or chills. Posterior Neck Pain Score (Numeric/FACES): 6 - Related Data Allergies Allergy/AdvReac Type Severity Reaction Status Date / Time No Known Allergies Allergy Verified 11/06/21 17:09 Home Meds: Home Meds B-Complex Vitamin 1 tab PO DAILY 02/05/14 [History] Bariatric Advantage Iron 60 mg pe CHEW DAILY 02/05/14 [History] Calcium Carbonate/Vitamin D3 [Calcium 500 + Vit D 400] 1 each PO BID 02/05/14 [History] Cholecalciferol (Vitamin D3) [Vitamin D] 5,000 unit PO DAILY 02/05/14 [History] Escitalopram [Lexapro] 20 mg PO DAILY 02/05/14 [History] Folic Acid 1 mg PO DAILY 02/05/14 [History] Vitamin A 7,500 unit PO DAILY 02/05/14 [History] Albuterol Sulfate [Ventolin Hfa] 2 puff IH Q4H PRN #1 canister 02/24/18 [Rx] ARIPiprazole [Abilify] 5 mg PO DAILY 12/31/20 [History] Baclofen 10 mg PO TIDMEALS 12/31/20 [History] Cyclobenzaprine [Flexeril] 10 mg PO TID PRN 12/31/20 [History] Ibuprofen 600 mg PO Q6H PRN 12/31/20 [History] Montelukast Sodium [Singulair] 10 mg PO BEDTIME 12/31/20 [History] Omeprazole 20 mg PO DAILY 12/31/20 [History] Oxybutynin 5 mg PO TID 12/31/20 [History] SUMAtriptan [Imitrex] 50 mg PO DAILY PRN 12/31/20 [History] Cyclobenzaprine [Flexeril] 10 mg PO TID PRN #9 tab 11/06/21 [Rx] Past Medical History HEENT History: Reports: Other (See Below) Other HEENT History: temporal mandibular joint disorder Cardiovascular History: Reports: Other (See Below) Other Cardiovascular History: bradycardia Gastrointestinal History: Reports: Other (See Below) Other Gastrointestinal History: post surgical malabsorption Musculoskeletal History: Reports: Osteoarthritis Other Musculoskeletal History: fatigue, costochondritis, acute pain of left shoulder, calf strain, carpal tunnel syndrome bilat., tendonitis right ankle Neurological History: Reports: Migraines Psychiatric History: Reports: Anxiety, Depression, PTSD, Other (See Below) Other Psychiatric History: borderline personality disorder, mood disorder Endocrine/Metabolic History: Reports: Obesity/BMI 30+, Vitamin D Deficiency, Other (See Below) Other Endocrine/Metabolic History: cobalamin deficiency Hematologic History: Reports: Anemia, B12 Deficiency, Iron Deficiency - Infectious Disease History Infectious Disease History: Reports: Chicken Pox, Novel Coronavirus - Past Surgical History GI Surgical History: Reports: Bariatric Procedure Neurological Surgical History: Reports: Spinal Fusion Musculoskeletal Surgical History: Reports: Other (See Below) Other Musculoskeletal Surgeries/Procedures:: achilles tendon Social & Family History - Family History Family Medical History: No Pertinent Family History - Tobacco Use Tobacco Use Status *Q: Unknown Ever Used Tobacco - Caffeine Use Caffeine Use: Reports: Coffee, Soda ED ROS GENERAL - Review of Systems Review Of Systems: Comprehensive ROS is negative, except as noted in HPI. ED EXAM, UPPER BACK/NECK PAIN - Physical Exam Exam: See Below Exam Limited By: No Limitations General Appearance: Alert, WD/WN, No Apparent Distress Eye Exam: Bilateral Eye: EOMI, PERRL Ears Exam: Normal External Exam, Normal Canal, Normal TMs Nose Exam: Normal Inspection, Normal Mucousa Throat/Mouth Exam: Normal Inspection, Normal Lips, Normal Teeth, Normal Gums, Normal Oropharynx, Normal Voice, No Airway Compromise Head Exam: Atraumatic, Normocephalic Neck Exam: Paraspinous Muscle Tender, Stiff Neck, Tender Lateral, Other (She does have a well-healed surgical incision at the midline.). 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 No: Motor Weakness, Sensory Deficit DTR: 2+: Bicep (R), Bicep (L), Tricep (R), Tricep (L), Patella (R), Patella (L), Achilles (R), Achilles (L) Psychiatric: Normal Affect, Normal Mood Skin Exam: Normal Color, Warm/Dry Lymphatic: No Adenopathy Course - Vital Signs Last Recorded V/S: Last Vital Signs Temp 97.6 F 11/06/21 16:50 Pulse 50 L 11/06/21 16:50 Resp 18 11/06/21 16:50 BP 132/69 11/06/21 16:50 Pulse Ox 99 11/06/21 16:50 - Orders/Labs/Meds Labs: Laboratory Tests 11/06/21 11/06/21 11/06/21 Range/Units 17:32 17:32 17:32 WBC 5.7 (4.0-10.0) x10^3/uL RBC 4.40 (4.00-5.50) x10^6/uL Hgb 12.5 (12.0-16.0) g/dL Hct 37.9 (33.0-47.0) % MCV 86.1 (78.0-93.0) fL MCH 28.4 (26.0-32.0) pg MCHC 33.0 (32.0-36.0) g/dL RDW Coeff of Saad 13.1 (10.0-15.0) % Plt Count 286 (130-400) x10^3/uL Immature Gran % (Auto) 0.20 (0.00-0.43) % Neut % (Auto) 47.4 L (50.0-80.0) % Lymph % (Auto) 39.0 (25.0-50.0) % [place] % (Auto) 8.1 (2.0-11.0) % Eos % (Auto) 4.4 H (0.0-4.0) % Baso % (Auto) 0.9 (0.2-1.2) % Neut # (Auto) 2.7 (1.8-7.7) x10^3/uL Lymph # (Auto) 2.2 (1.0-4.8) x10^3/uL [place] # (Auto) 0.5 (0.0-0.8) x10^3/uL Eos # (Auto) 0.3 (0.0-0.5) x10^3/uL Baso # (Auto) 0.1 (0.0-0.2) x10^3/uL Immature Gran # (Auto) 0.01 (0.00-0.07) x10^3/uL PT 9.9 (9.9-12.5) SEC INR 0.9 L (2.0-3.5) APTT 25.4 L (25.6-32.8) SEC Sodium 143 (136-145) mmol/L Potassium 4.0 (3.5-5.1) mmol/L Chloride 105 (98-107) mmol/L Carbon Dioxide 32 (21-32) mmol/L Anion Gap 10.0 (5-15) mmol/L BUN 18 (7-18) mg/dL Creatinine 0.8 (0.55-1.02) mg/dL Est Cr Clr Drug Dosing TNP Estimated GFR (MDRD) > 60 Glucose 92 (70-99) mg/dL Lactic Acid (0.4-2.0) mmol/L Calcium 8.6 (8.5-10.1) mg/dL Corrected Calcium 8.8 (8.5-10.1) mg/dL Total Bilirubin 0.3 (0.2-1.0) mg/dL AST 14 L (15-37) U/L ALT 23 (14-59) U/L Alkaline Phosphatase 107 (46-116) U/L Troponin I High Sens 7 (<=51) ng/L Total Protein 6.9 (6.4-8.2) g/dL Albumin 3.7 (3.4-5.0) g/dL Globulin 3.2 Albumin/Globulin Ratio 1.16 11/06/21 Range/Units 17:32 WBC (4.0-10.0) x10^3/uL RBC (4.00-5.50) x10^6/uL Hgb (12.0-16.0) g/dL Hct (33.0-47.0) % MCV (78.0-93.0) fL MCH (26.0-32.0) pg MCHC (32.0-36.0) g/dL RDW Coeff of Saad (10.0-15.0) % Plt Count (130-400) x10^3/uL Immature Gran % (Auto) (0.00-0.43) % Neut % (Auto) (50.0-80.0) % Lymph % (Auto) (25.0-50.0) % [place] % (Auto) (2.0-11.0) % Eos % (Auto) (0.0-4.0) % Baso % (Auto) (0.2-1.2) % Neut # (Auto) (1.8-7.7) x10^3/uL Lymph # (Auto) (1.0-4.8) x10^3/uL [place]ee # (Auto) (0.0-0.8) x10^3/uL Eos # (Auto) (0.0-0.5) x10^3/uL Baso # (Auto) (0.0-0.2) x10^3/uL Immature Gran # (Auto) (0.00-0.07) x10^3/uL PT (9.9-12.5) SEC INR (2.0-3.5) APTT (25.6-32.8) SEC Sodium (136-145) mmol/L Potassium (3.5-5.1) mmol/L Chloride (98-107) mmol/L Carbon Dioxide (21-32) mmol/L Anion Gap (5-15) mmol/L BUN (7-18) mg/dL Creatinine (0.55-1.02) mg/dL Est Cr Clr Drug Dosing Estimated GFR (MDRD) Glucose (70-99) mg/dL Lactic Acid 0.8 (0.4-2.0) mmol/L Calcium (8.5-10.1) mg/dL Corrected Calcium (8.5-10.1) mg/dL Total Bilirubin (0.2-1.0) mg/dL AST (15-37) U/L ALT (14-59) U/L Alkaline Phosphatase (46-116) U/L Troponin I High Sens (<=51) ng/L Total Protein (6.4-8.2) g/dL Albumin (3.4-5.0) g/dL Globulin Albumin/Globulin Ratio Meds: Medications Discontinued Medications Generic Name Dose Route Start Last Admin Trade Name Freq PRN Reason Stop Dose Admin Cyclobenzaprine HCl 1 packet 11/06/21 18:54 11/06/21 19:00 Take Home: Cyclobenzaprine 10 Mg Tab, 4 Tab Pack PO 11/06/21 18:55 1 packet ONETIME ONE Administration Ketorolac Tromethamine 30 mg 11/06/21 18:53 11/06/21 19:05 Ketorolac 30 Mg/Ml Sdv IVPUSH 11/06/21 18:54 30 mg ONETIME ONE Administration Orphenadrine Citrate 60 mg 11/06/21 17:24 11/06/21 19:02 Orphenadrine 60 Mg/2 Ml Inj IV 11/06/21 17:25 60 mg ONETIME ONE Administration Sodium Chloride 10 ml 11/06/21 17:22 Sodium Chloride 0.9% 10 Ml Syringe FLUSH ASDIRECTED PRN Keep Vein Open - Radiology Interpretation Free Text/Narrative:: CT of the head per radiology shows no acute intracranial findings. Chest x-ray per radiology shows lungs are clear no pleural effusion or pneumothorax. CT cervical spine per radiology shows no acute findings of the cervical spine. - Re-Assessments/Exams Free Text/Narrative Re-Assessment/Exam: C-collar was placed upon admission IV was established labs were drawn. She was given Norflex 60 mg IV push. Her EKG shows a sinus bradycardia without any ST elevation or depression were reviewed extemporaneously by myself. 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 She has had a Holter monitor that did not find any pathology. She is asymptomatic with her bradycardia at this time. Laboratory evaluation is rather unremarkable. Her troponin is negative. Rest of her labs are unremarkable. CT scan of the head and neck were negative. Chest x-ray was negative. EKG and troponin was negative. I really think most of her sequelae of her rib pain is most likely due to her fall and splinting. Her exam is more concerning for paraspinal tenderness and muscle irritation then it is overt bony injury and this is backed up by the CT scan. She is probably more tender now or painful now as her muscles are getting fatigued. She had quite a bit of improvement with the Norflex. She was also given some Toradol in the emergency department. We will discharge her home with Flexeril for pain management. Anything new or worse she is to recheck. We will set her up with a Holter monitor in the clinic due to her bradycardia. She is comfortable with this plan and her questions are answered. She was cautioned on returning immediately if she has any weakness dizziness lightheadedness chest pain shortness of breath. Departure - Departure Time of Disposition: 18:41 Disposition: Home, Self-Care 01 Clinical Impression: Bradycardia Cervical strain, acute Qualifiers: Encounter type: initial encounter Qualified Code(s): S16.1XXA - Strain of muscle, fascia and tendon at neck level, initial encounter Fall Qualifiers: Encounter type: initial encounter Qualified Code(s): W19.XXXA - Unspecified fall, initial encounter - Discharge Information Prescriptions: Cyclobenzaprine [Flexeril] 10 mg PO TID PRN #9 tab PRN Reason: Pain Instructions: Fall Prevention in the Home, Adult, [id number], Muscle Strain, [id number], Cervical Sprain, [id number], Pain Medicine Instructions, [id number] Referrals: Contreras Mann NP [Primary Care Provider] - Forms: ED Department Discharge Additional Instructions: Contact your clinic tomorrow and get a holter monitor placed. I have sent an order to the clinic. Tylenol and or Ibuprofen as needed for pain fever discomfort. Heat or ice to the area which ever works best. Flexeril 1 table three times a day as needed for pain muscle spasms. Take home pack from the ED and RX sent to Self referral to PT/OT for cervical strain contact them tomorrow. Recheck vitals with clinic on wednesday. Return to the ED if new or worsening symptoms. Especially if weakness dizziness syncope.
[2021-11-06] MEDS ORDERED: Sodium Chloride 0.9% 10 ML Syringe FLUSH PRN (17:22)
[2021-11-06] MEDS ORDERED: Orphenadrine 60 MG/2 ML Inj IV ONE (17:24)
[2021-11-06 17:58] LABS: PTT,PARTIAL THROMBOPLSTIN TIME 25.4 SEC (25.6-32.8)
[2021-11-06 18:02] LABS: CHLORIDE,CL 105 mmol/L (98-107); SODIUM,NA 143 mmol/L (136-145)
--- NOTE | 2021-11-06 18:19 | CT ---
[id number] CT/CT Cervical Spine WO IV EXAM: CT Cervical Spine WO IV INDICATION: FALL, NECK PAIN, PREVIOUS C6 C7 FUSION. COMPARISON: None. DISCUSSION: Patient is status post hardware fusion at C6-7. No prior imaging available for comparison or correlation. Acute fracture or compression deformity. Grade 1 anterolisthesis at C6-7 and C7-T1. Degenerative disc disease with intervertebral disc height loss at C6-7 and C7-T1. Facet joint arthropathy throughout the cervical spine. No prevertebral soft tissue edema. Lung apices are clear. IMPRESSION: No acute findings in the cervical spine. Thiago Chaves MD 11/06/21 [id number] Thank you for allowing us to participate in the care of your patient.
--- NOTE | 2021-11-06 18:22 | CT ---
[id number] CT/CT Head WO IV EXAM: CT Head WO IV CLINICAL DATA: FALL, HEAD INJURY. COMPARISON STUDY: None FINDINGS: No intracranial hemorrhage, extra-axial fluid collection, mass, or acute ischemia. No hydrocephalus. Calvarium intact. Mucosal thickening and air-fluid level in left maxillary sinus. Mastoid air cells and middle ear cavities are clear. IMPRESSION: No acute intracranial findings. Thiago Chaves MD 11/06/21 [id number] Thank you for allowing us to participate in the care of your patient.
--- NOTE | 2021-11-06 18:23 | CR ---
[id number] RAD/RAD Chest PA And Lateral EXAM: RAD Chest PA And Lateral INDICATION: CHEST PAIN, SHORTNESS OF BREATH, FALL, EPIGASTRIC PAIN. COMPARISON: September 2020. DISCUSSION/IMPRESSION: Cardiomediastinal silhouette is normal in size and contour. Lungs are clear. No pleural effusion or pneumothorax. Thiago Chaves MD 11/06/21 [id number] Thank you for allowing us to participate in the care of your patient.
[2021-11-06] MEDS ORDERED: Ketorolac 30 MG/ML SDV IVPUSH ONE (18:53)
[2021-11-06] MEDS ORDERED: Take Home: Cyclobenzaprine 10 MG Tab, 4 Tab Pack PO ONE (18:54)
--- NOTE | 2021-11-08 04:21 | PCM.EKG ---
#1 Interpretation EKG Date: 11/06/21 Time: 17:33 Rhythm: NSR (annia) Rate (Beats/Min): 50 [place]: Normal P-Wave: Present QRS: Normal ST-T: Normal QT: Normal Comparison: NA - No Prior EKG
== END 2021-11-06 19:10 | disposition home or self-care (01) ==
LOC: VM.ED 16:44
DX: S16.1XXA Strain of muscle, fascia and tendon at neck level, initial encounter (principal); R00.1 Bradycardia, unspecified; E66.9 Obesity, unspecified; Z68.30 Body mass index [BMI] 30.0-30.9, adult; Z79.899 Other long term (current) drug therapy; W18.09XA Striking against other object with subsequent fall, initial encounter
CPT/HCPCS: 36415; 70450; 71046; 72125; 80053; 83605; 84484; 85025; 85610; 85730; 93005; 93010; 96374; 96375; 99284; 99284-25; A9270-GY; J1885; J2360

== ENCOUNTER 2022-03-01 10:50 | Emergency (ER) | payer OTHER ==
[2022-03-01 13:40] LABS: CORONAVIRUS COVID-19 NAA NEGATIVE (NEGATIVE)
[2022-03-01 13:41] VITALS: BP 182/80; PULSE 71
[2022-03-01] MEDS ORDERED: Dexamethasone 4 MG Tab PO ONE (13:53)
[2022-03-01] MEDS ORDERED: Lactated Ringers 1,000 ML IV ONE (13:53)
[2022-03-01] MEDS ORDERED: Take Home: Dexamethasone/Neomycin/Polymyxin B Ophth Susp, 1 Btle Pack EYEBOTH SCH (14:00)
[2022-03-01 14:49] LABS: ANION GAP 10.1 mmol/L (5-15); CHLORIDE,CL 102 mmol/L (98-107); SODIUM,NA 140 mmol/L (136-145)
== END 2022-03-01 15:04 | disposition home or self-care (01) ==
LOC: VM.ED 10:50
DX: J02.9 Acute pharyngitis, unspecified (principal); H10.33 Unspecified acute conjunctivitis, bilateral; E66.9 Obesity, unspecified; Z68.30 Body mass index [BMI] 30.0-30.9, adult; Z79.899 Other long term (current) drug therapy; Z86.16 Personal history of COVID-19; Z20.822 Contact with and (suspected) exposure to COVID-19
CPT/HCPCS: 0240U; 36415; 80053; 85025; 86140; 87651-QW; 99283; 99284; J7120; J8540